=== PATIENT | male | born 1990 | race African-American/Black ===

== ENCOUNTER 2017-01-16 18:29 | Emergency (ER) | payer OTHER ==
[~2017-01-16] VITALS: Ht 180.3 cm; Wt 55.0 kg
[2017-01-16] MEDS ORDERED: HYDROCODONE/ACETAMINOPHEN 5/325MG TABLET PO STA (18:47)
[2017-01-16 21:17] VITALS: BP 120/69
== END 2017-01-16 21:44 | disposition home or self-care (01) ==
LOC: EDBD 18:29 → ER 18:31
DX: S16.1XXA Strain of muscle, fascia and tendon at neck level, initial encounter (principal); S20.219A Contusion of unspecified front wall of thorax, initial encounter; S39.012A Strain of muscle, fascia and tendon of lower back, initial encounter; S29.012A Strain of muscle and tendon of back wall of thorax, initial encounter; F17.210 Nicotine dependence, cigarettes, uncomplicated; F12.10 Cannabis abuse, uncomplicated; V43.62XA Car passenger injured in collision with other type car in traffic accident, initial encounter; Y93.89 Activity, other specified; Y92.488 Other paved roadways as the place of occurrence of the external cause
CPT/HCPCS: 71010; 72040; 72070; 72100; 72170; 99284; Z7610

== ENCOUNTER 2019-06-13 07:49 | Emergency (ER) | payer OTHER ==
[~2019-06-13] VITALS: Ht 180.3 cm; Wt 50.0 kg
[2019-06-13] MEDS: TETANUS, DIPHTHERIA, PERTUSSIS VAC/PF 0.5ML (>7YR OLD) IM ONE (10:22)
[2019-06-13 12:05] VITALS: BP 152/73
[2019-06-13] MEDS: TENOFOVIR 300MG TABLET PO ONE (12:19)
[2019-06-13] MEDS: RALTEGRAVIR 400MG TABLET PO ONE (12:19)
[2019-06-13] MEDS: EMTRICITABINE 200MG CAPSULE PO ONE (12:19)
[2019-06-13 12:29] LABS: *AMPHETAMINES SCREEN URINE PRESUMTIVE POSITIVE (NEGATIVE); *BARBITURATES SCREEN URINE NEGATIVE (NEGATIVE); *BENZODIAZEPINES SCREEN URINE NEGATIVE (NEGATIVE); *COCAINE SCREEN URINE NEGATIVE (NEGATIVE); METHADONE URINE SCREEN NEGATIVE (NEGATIVE); OPIATES URINE SCREEN NEGATIVE (NEGATIVE)
[2019-06-13 12:30] LABS: CANNABINOID URINE SCREEN PRESUMTIVE POSITIVE (NEGATIVE); PHENCYCLIDINE URINE SCREEN NEGATIVE (NEGATIVE)
== END 2019-06-13 12:20 | disposition home or self-care (01) ==
LOC: ER 07:49
DX: S60.872A Other superficial bite of left wrist, initial encounter (principal); Z20.6 Contact with and (suspected) exposure to human immunodeficiency virus [HIV]; I10 Essential (primary) hypertension; F15.10 Other stimulant abuse, uncomplicated; F17.200 Nicotine dependence, unspecified, uncomplicated; Y04.1XXA Assault by human bite, initial encounter; Y93.89 Activity, other specified; Y92.89 Other specified places as the place of occurrence of the external cause; Y99.8 Other external cause status
CPT/HCPCS: 80305; 90471; 90715; 99284

== ENCOUNTER 2019-06-16 11:55 | Emergency (ER) | payer SELFPAY ==
[~2019-06-16] VITALS: Ht 180.3 cm; Wt 52.7 kg
[2019-06-16 13:45] VITALS: BP 140/98
== END 2019-06-16 13:46 | disposition home or self-care (01) ==
LOC: ER 13:22
DX: Z76.0 Encounter for issue of repeat prescription (principal); Z48.00 Encounter for change or removal of nonsurgical wound dressing
CPT/HCPCS: 99283